=== PATIENT | female | born 1975 | race Caucasian/White ===

== ENCOUNTER → 2021-06-14 | Outpatient (CLI) | payer BC ==
[~2021-06-14] MED LIST: ALBU8.5H INH; AMLO1TAB24; ASPI-551 PO; AZIT-12 PO; FLUTISP NARES; HYDR-3490; HYDR12.55 PO; LOSA50TA28 PO; PRED10TA2 PO; PRED20TA PO; SERT-141 PO; SING5CHW23 PO; SYMB80INH INH
== END ==
LOC: M LABSMTC 10:45
PROVIDERS: ATTEND Anesthesiology
DX: Z01.812 Encounter for preprocedural laboratory examination (principal); Z20.828 Contact with and (suspected) exposure to other viral communicable diseases

== ENCOUNTER 2021-06-19 09:51 | Day surgery (SDC) | payer BC ==
[~2021-06-19] VITALS: Ht 167.6 cm; Wt 98.4 kg
[~2021-06-19 09:51] MED LIST changes: +LIDOCAINE 2% 100MG/5ML SDV (FOR ANES.) As Ordered ONE; +NS 1,000 ML IV ONE; +propofoL 200 MG/20 ML VIAL As Ordered ONE
[2021-06-19 11:25] VITALS: BP 147/84
== END 2021-06-19 11:37 | disposition home or self-care (01) ==
LOC: M OPP 09:51
PROVIDERS: ATTEND Surgery
DX: Z12.11 Encounter for screening for malignant neoplasm of colon (principal); Z79.899 Other long term (current) drug therapy; Z88.0 Allergy status to penicillin; Z80.52 Family history of malignant neoplasm of bladder

== ENCOUNTER → 2022-04-09 | Outpatient (CLI) | payer BC ==
[~2022-04-09] MED LIST changes: -LIDOCAINE 2% 100MG/5ML SDV (FOR ANES.) As Ordered ONE; -NS 1,000 ML IV ONE; -propofoL 200 MG/20 ML VIAL As Ordered ONE
== END ==
LOC: M LAB 09:25
PROVIDERS: ATTEND Allergy & Immunology Allergy
DX: T78.01XD Anaphylactic reaction due to peanuts, subsequent encounter (principal)

== ENCOUNTER → 2022-12-31 | Outpatient (REF) | payer BC ==
[~2022-12-31] MED LIST changes: +FLUT50SP17 NARES; -FLUTISP NARES
[2022-12-31 17:14] LABS: RSV AMPLIFICATION NEGATIVE (NEGATIVE)
== END ==
LOC: M LAB REF 16:17
PROVIDERS: ATTEND Internal Medicine
DX: R53.83 Other fatigue (principal)

== ENCOUNTER → 2023-10-22 | Outpatient (CLI) | payer BC ==
[~2023-10-22] MED LIST changes: -FLUT50SP17 NARES; +FLUTISP NARES; +MONT5TAB7 PO; -SING5CHW23 PO
== END ==
LOC: M SLEEP 20:00
PROVIDERS: ATTEND Physician Assistant
DX: G47.33 Obstructive sleep apnea (adult) (pediatric) (principal); R40.0 Somnolence

== ENCOUNTER → 2023-12-05 | Outpatient (CLI) | payer BC | LOC: M SLEEP 20:00 | PROVIDERS: ATTEND Physician Assistant | DX: G47.33 Obstructive sleep apnea (adult) (pediatric) (principal) ==